=== PATIENT | female | born 1950 | race Caucasian/White ===

== ENCOUNTER → 2020-01-11 18:41 | Outpatient (ROUT) | payer MEDICARE, SELFPAY ==
[2020-01-11 18:55] LABS: Add Manual Diff / Slide Review NO; Basophils Absolute Auto 0 /uL (0-100); Basophils Percent Auto 0.5 % (0-2); Eosinophils Absolute Auto 200 /uL (0-450); Eosinophils Percent Auto 2.3 % (2-4); Hematocrit 42.9 % (36-46); Hemoglobin 14.8 g/dL (12.0-16.0); Lymphocytes Absolute Auto 800 /uL (1100-4500); Lymphocytes Percent Auto 12.4 % (25-40); Mean Corpuscular HGB Conc 34.6 % (30-36); Mean Corpuscular Hemoglobin 31.2 PG (26-34); Mean Corpuscular Volume 90.2 fL (80-100); Monocytes Absolute Auto 400 /uL (0-900); Monocytes Percent Auto 6.6 % (3-14); Neutrophils Absolute Auto 5200 /uL (1500-7000); Neutrophils Percent Auto 78.2 % (50-75); Platelet Count 206 X10^3/uL (150-400); Red Blood Cell Count 4.76 X10^6/uL (4.0-5.2); Red Cell Distribution Width 12.5 % (11.6-14.8); White Blood Cell Count 6.7 X10^3/uL (4.5-11.0)
[2020-01-11 19:09] LABS: Alanine Aminotransferase 18 IU/L (<35); Albumin Globulin Ratio 1.7 (1.0-2.8); Alkaline Phosphatase 74 U/L (38-126); Aspartate Aminotransferase 31 IU/L (14-36); Bilirubin Total 1.2 mg/dL (0.2-1.3); Blood Urea Nitrogen 15 mg/dL (7-17); Calcium 10.7 mg/dL (8.4-10.2); Carbon Dioxide 28 mmol/L (22-32); Chloride 97 mmol/L (98-107); Cholesterol 245 mg/dL (140-199); Estimated Glomerular Filt Rate > 60.0 mL/min (>60); Glucose 91 mg/dL (80-110); HEMOLYSIS < 15 (0-50); Potassium 4.1 mmol/L (3.4-5.1); Sodium 135 mmol/L (137-145); Triglycerides 50 mg/dL (35-150)
[2020-01-11 19:15] LABS: C-Reactive Protein Quant < 0.5 mg/dL (<1.0); HDL Cholesterol 136 mg/dL (40-60); LDL Cholesterol Calculated 99 mg/dL (<100)
[2020-01-11 19:22] LABS: Erythrocyte Sedimentation Rate 4 MM/HR (0-20)
[2020-01-11 19:37] LABS: TSH w/ Reflex to FT4 0.65 uIU/mL (0.47-4.68)
== END ==
PROVIDERS: Visit Provider Internal Medicine
DX: M45.9 Ankylosing spondylitis of unspecified sites in spine (principal); E78.2 Mixed hyperlipidemia
CPT/HCPCS: 80053; 80061; 84443; 85025; 85651; 86140

== ENCOUNTER → 2020-12-19 18:55 | Outpatient (ROUT) | payer OTHER, SELFPAY ==
[2020-12-19 19:33] LABS: HEMOLYSIS < 15 (0-50); Potassium 4.1 mmol/L (3.4-5.1)
[2020-12-19 19:34] LABS: Aspartate Aminotransferase 30 IU/L (14-36); BUN Creatinine Ratio 25.9 (6-22); Blood Urea Nitrogen 15 mg/dL (7-17); Calcium 10.5 mg/dL (8.4-10.2); Carbon Dioxide 29 mmol/L (22-32); Chloride 97 mmol/L (98-107); Cholesterol 250 mg/dL (140-199); Estimated Glomerular Filt Rate > 60.0 mL/min (>60); Glucose 112 mg/dL (80-110); Sodium 135 mmol/L (137-145); Triglycerides 73 mg/dL (35-150)
[2020-12-19 19:51] LABS: HDL Cholesterol 142 mg/dL (40-60); LDL Cholesterol Calculated 93 mg/dL (<100)
[2020-12-19 20:21] LABS: Vitamin B12 841 pg/mL (239-931)
== END ==
PROVIDERS: Visit Provider Internal Medicine
DX: I10 Essential (primary) hypertension (principal); E78.2 Mixed hyperlipidemia; E53.8 Deficiency of other specified B group vitamins
CPT/HCPCS: 80048; 80061; 82607; 84450

== ENCOUNTER → 2024-04-09 08:54 | Outpatient (CLI) | payer MEDICARE, SELFPAY ==
[2024-04-09 10:01] LABS: Add Manual Diff / Slide Review NO; Basophils Absolute Auto 0 /uL (0-100); Basophils Percent Auto 0.5 % (0-2); Eosinophils Absolute Auto 100 /uL (0-450); Eosinophils Percent Auto 2.2 % (2-4); Hematocrit 41.9 % (36-46); Hemoglobin 14.1 g/dL (12.0-16.0); Lymphocytes Absolute Auto 900 /uL (1100-4500); Lymphocytes Percent Auto 19.1 % (25-40); Mean Corpuscular HGB Conc 33.8 % (30-36); Mean Corpuscular Hemoglobin 30.5 PG (26-34); Mean Corpuscular Volume 90.2 fL (80-100); Monocytes Absolute Auto 400 /uL (0-900); Monocytes Percent Auto 8.5 % (3-14); Neutrophils Absolute Auto 3300 /uL (1500-7000); Neutrophils Percent Auto 69.7 % (50-75); Platelet Count 239 X10^3/uL (150-400); Red Blood Cell Count 4.64 X10^6/uL (4.0-5.2); Red Cell Distribution Width 12.4 % (11.6-14.8); White Blood Cell Count 4.7 X10^3/uL (4.5-11.0)
[2024-04-09 10:29] LABS: Alanine Aminotransferase 19 IU/L (<35); Albumin 4.5 g/dL (3.5-5.0); Albumin Globulin Ratio 1.7 (1.0-2.8); Alkaline Phosphatase 72 U/L (38-126); Aspartate Aminotransferase 29 IU/L (14-36); BUN Creatinine Ratio 18.6 (6-22); Bilirubin Total 0.8 mg/dL (0.2-1.3); Blood Urea Nitrogen 11 mg/dL (7-17); Calcium 9.9 mg/dL (8.4-10.2); Carbon Dioxide 27 mmol/L (22-32); Chloride 98 mmol/L (98-107); Cholesterol 243 mg/dL (140-199); Estimated Glomerular Filt Rate > 60 mL/min (>60); Globulin 2.6 g/dL (1.7-4.1); Glucose 86 mg/dL (80-110); HEMOLYSIS < 15 (0-50); Potassium 4.6 mmol/L (3.4-5.1); Sodium 134 mmol/L (137-145); Total Protein 7.1 g/dL (6.3-8.2); Triglycerides 50 mg/dL (35-150)
[2024-04-09 10:40] LABS: HDL Cholesterol 160 mg/dL (40-60); LDL Cholesterol Calculated 73 mg/dL (<100)
[2024-04-09 13:02] LABS: Creatinine Urine Random 41.11 mg/dL
[2024-04-09 13:12] LABS: Microalbumin Urine Random < 0.6 mg/dL (0-1.6)
== END ==
PROVIDERS: PCP Family Medicine; Referring Provider Family Medicine; Visit Provider Family Medicine
DX: I10 Essential (primary) hypertension (principal); E78.5 Hyperlipidemia, unspecified; Z13.9 Encounter for screening, unspecified
CPT/HCPCS: 36415; 80053; 80061; 82043; 82570; 85025

== ENCOUNTER → 2024-04-12 09:28 | Outpatient (CLI) | payer MEDICARE, SELFPAY ==
--- NOTE | 2024-04-12 09:31 | DI.RAD.S_ITS ---
PROCEDURE: XR DEXA AXIAL SKELETON INDICATIONS: Bone Density Screening COMPARISON: None. FINDINGS: Lumbar Spine: Bone mineral density 0.928 g/cm2, T score -1.1, normal. Right Hip: Bone mineral density 0.652 g/cm2, T score -2.4, osteopenia. Right Femoral Neck: Bone mineral density 0.637 g/cm2, T score -1.9, osteopenia. Left Forearm: Bone mineral density 0.602 g/cm2, T score -1.5, osteopenia. Fracture Risk Calculation (when applicable): 10-year fracture risk of a major osteoporotic fracture 12 % and of a hip fracture 3%. (T score greater or equal to -1.0 to: NORMAL) (T score from -1.1 to -2.4: OSTEOPENIA) (T score less than or equal to -2.5: OSTEOPOROSIS) IMPRESSION: Osteopenia. Follow-up guidelines as follows: Osteoporosis: Consider a repeat DEXA and Vertebral Fracture Assessment (VFA) exam in 2 years or sooner if medically necessary, to reassess this patient's status. Osteopenia: Consider a repeat DEXA in 2-3 years to reassess this patient's status, or if there is a new clinical indication. Normal: Consider a repeat DEXA in 5 years or sooner, or if there is a new clinical indication. All treatment decisions require clinical judgment and consideration of individual patient factors, including patient preferences, comorbidities, previous drug use, risk factors not captured in the FRAX model (e.g., frailty, falls, vitamin D deficiency, increased bone turnover, interval significant decline in bone density ) and possible under- or over-estimation of fracture risk by FRAX. In addition, the NOF Guide recommends that FDA-approved medical therapies be considered in postmenopausal women and men age >= 50 years with a: * Hip or vertebral (clinical or morphometric) fracture * T-score of <=-2.5 at the spine or hip * Ten-year fracture probability by FRAX of >= 3% for hip fracture or >=20% for major osteoporotic fracture. People with diagnosed cases of osteoporosis or at high risk for fracture should have regular bone mineral density tests. For patients eligible for Medicare, routine testing is allowed once every 2 years. The testing frequency can be increased to one year for patients who have rapidly progressing disease, those who are receiving or discontinuing medical therapy to restore bone mass, or have additional risk factors. Dictated by: Ashish Woodson M.D. on 04/12/2024 at 15:12 Approved by: Ashish Woodson M.D. on 04/12/2024 at 15:13
== END ==
PROVIDERS: PCP Family Medicine; Referring Provider Family Medicine; Visit Provider Family Medicine
DX: M85.89 Other specified disorders of bone density and structure, multiple sites (principal); Z13.820 Encounter for screening for osteoporosis; Z78.0 Asymptomatic menopausal state
CPT/HCPCS: 77080; 77081

== ENCOUNTER → 2024-04-20 06:30 | Outpatient (CLI) | payer MEDICARE, SELFPAY ==
--- NOTE | 2024-04-20 06:31 | DI.US.S_ITS ---
PROCEDURE: US CAROTID DOPPLER BI INDICATIONS: HISTORY OF PLAQUE APPROXIMATELY 2012 TECHNIQUE: Color and pulse Doppler interrogation was performed of both carotid systems, with image documentation and velocity measurements. COMPARISON: None. FINDINGS: Stenosis calculations are based on SRU (Society of Radiologists in Ultrasound) criteria. Right side: Common carotid artery peak systolic velocity: 102 cm/sec. Internal carotid artery peak systolic velocity: 88 cm/sec. Internal carotid artery end diastolic velocity: 20 cm/sec. External carotid artery peak systolic velocity: 150 cm/sec. ICA/CCA peak systolic ratio: 0.9 . Concepcion scale imaging description: Atherosclerotic plaque Percent internal carotid artery stenosis: Less than 50 . Vertebral artery: Not well seen Left side: Common carotid artery peak systolic velocity: 165 cm/sec. Internal carotid artery peak systolic velocity: 72 cm/sec. Internal carotid artery end diastolic velocity: 13 cm/sec. External carotid artery peak systolic velocity: 135 cm/sec. ICA/CCA peak systolic ratio: 0.4 . Concepcion scale imaging description: Shadowing atherosclerotic plaque Percent internal carotid artery stenosis: Less than 50 . Vertebral artery: Flow direction is antegrade. IMPRESSION: Atherosclerotic plaque with less than 50 percent stenosis bilateral proximal ICA. Right vertebral artery not well seen. Approved by: Steve Butler M.D. on 04/20/2024 at 15:13
== END ==
PROVIDERS: PCP Family Medicine; Referring Provider Family Medicine; Visit Provider Family Medicine
DX: I77.9 Disorder of arteries and arterioles, unspecified (principal); I10 Essential (primary) hypertension; E78.5 Hyperlipidemia, unspecified; I65.23 Occlusion and stenosis of bilateral carotid arteries
CPT/HCPCS: 93880

== ENCOUNTER → 2024-07-01 08:10 | Outpatient (CLI) | payer MEDICARE, SELFPAY ==
--- NOTE | 2024-07-01 | DI.ECHO.S_ITS ---
[facility] : : [address] : : [place] : : [id number] : : Phone: [phone] Echocardiogram Report + + :Name: CELIA MAC Study Date: 07/01/2024 Height: 64 in : :[facility] ReadingLocation: Weight: 126 lb : : Gender: Female BSA: 1.6 m2 : :: 1950 Age: 74 yrs BP: 193/98 mmHg: :Reason For Study: MURMUR FOLLOW UP : :Ordering Physician: MARLYN, : :LOBO Rubio Performed By: Lobo Barrera : :Referring: LOBO CLINE : + + Interpretation Summary The left ventricle is normal in size. The left ventricle is hyperdynamic. The ejection fraction is estimated to be 70-75%. There is no echo evidence for significant left ventricular outflow tract obstruction. The right ventricle is normal in size and function. There is mild mitral regurgitation. Mild TR. The right ventricular systolic pressure is estimated to be at least 38 mmHg based on an estimated right atrial pressure of 3 mm Hg. Moderate atherosclerotic plaque(s) in the aortic arch. Aortic valve mild to moderately calcified.There is mildly reduced leaflet mobility. In parasternal long axis view, there is a small thin filamentous like structure seen attached to the aortic cusp towards LV outflow tract side which moves with the aortic cusp. Does not appears to be typical vegetation or thrombus. 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 Correlate clinically. If there is a clinical evidence of TIA or stroke or endocarditis, consider DEISY. Procedure: A two-dimensional transthoracic echocardiogram with color flow and Doppler was performed. The study quality was technically good. There is no prior echocardiogram noted for this patient. The patient was in normal sinus rhythm during the exam. Rhythm sinus to mild sinus tachycardia. Left Ventricle: The left ventricle is normal in size. There is normal left ventricular wall thickness. There is no echo evidence for significant left ventricular outflow tract obstruction. There is no thrombus. The ejection fraction is estimated to be 70-75%. The left ventricle is hyperdynamic. There are no focal wall motion abnormalities. Diastolic parameters suggest a relaxation abnormality of the left ventricle, consistent with probable normal filling pressures. Right Ventricle: The right ventricle is normal in size and function. Atria: The left atrium is severely dilated. Right atrial size is normal. There is no Doppler evidence for an atrial septal defect. Mitral Valve: The mitral valve leaflets appear mildly thickened, but open well. There is mild mitral annular calcification. There is mild mitral regurgitation. Aortic Valve: The aortic valve is trileaflet. There is mildly reduced leaflet mobility. Aortic valve mild to moderately calcified. In parasternal long axis view, there is a small thin filamentous like structure seen attached to the aortic cusp towards LV outflow tract side which moves with the aortic cusp. Does not appears to be typical vegetation or thrombus. 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 Correlate clinically. There is no hemodynamically significant valvular aortic stenosis. Tricuspid Valve: The tricuspid valve is normal. There is mild tricuspid regurgitation. The right ventricular systolic pressure is estimated to be at least 38 mmHg based on an estimated right atrial pressure of 3 mm Hg. Pulmonic Valve: The pulmonic valve leaflets are thin and pliable; valve motion is normal. There is trace pulmonic regurgitation. Great Vessels: The aortic root is normal size. The ascending aorta is at the upper limits of normal in size. Moderate atherosclerotic plaque(s) in the aortic arch. The pulmonary artery is normal size. The IVC is of normal diameter and collapses greater than 50% with a sniff. This suggests a low right atrial pressure of 3 mm Hg. Pericardium/ Pleura There is no pericardial effusion. There is no pleural effusion. MMode/2D Measurements & Calculations LVIDd: 4.1 cm LVOT diam: 2.1 cm LVIDs: 2.3 cm Ao root diam: 3.5 cm FS: 44.1 % asc Aorta Diam: 3.7 cm EPSS: 0.45 cm IVSd: 1.0 cm LVPWd: 1.00 cm LV john. diameter/BSA (cm/m^2): 2.6 LV sys. diameter/BSA (cm/m^2): 1.4 LA A2 area: 25.0 cm2 RA long axis: 4.2 cm LA A4 area: 23.6 cm2 RA area: 11.6 cm2 LA length (vol): 5.5 cm RA vol: 27.4 ml LA vol: 91.7 ml RA : 17.0 ml/m2 LA vol index: 57.1 ml/m2 IVC diam: 1.2 cm RVD1 (basal): 3.3 cm RVD2 (mid): 2.2 cm TAPSE: 3.2 cm Doppler Measurements & Calculations Ao V2 max: 163.0 cm/sec LVOT Max Mirza: 131.2 cm/sec Ao V2 mean: 105.3 cm/sec LV V1 max P.9 mmHg Ao max P.6 mmHg LV V1 VTI: 32.8 cm Ao mean P.1 mmHg ALEXUS(I,D): 3.0 cm2 Ao V2 VTI: 36.5 cm ALEXUS(V,D): 2.7 cm2 sev ratio: 0.90 ALEXUS indexed to BSA (cm^2/m^2): 1.9 MV E max mirza: 71.1 cm/sec TR max mirza: 297.0 cm/sec MV A max mirza: 97.3 cm/sec TR max P.3 mmHg MV E/A: 0.73 PA V2 max: 107.7 cm/sec Med Peak E' Mirza: 6.0 cm/sec PA V2 mean: 80.4 cm/sec E/E' med: 11.9 PA mean P.8 mmHg Lat Peak E' Mirza: 5.9 cm/sec PA pr(Accel): 20.8 mmHg E/E' lat: 12.1 E/e' average: 12.0 MV dec time: 0.27 sec SV(LVOT): 108.5 ml Reading Physician:01:24 PM
== END ==
PROVIDERS: PCP Family Medicine; Referring Provider Family Medicine; Visit Provider Family Medicine
DX: I08.1 Rheumatic disorders of both mitral and tricuspid valves (principal); I70.0 Atherosclerosis of aorta; I77.9 Disorder of arteries and arterioles, unspecified; R01.1 Cardiac murmur, unspecified; I10 Essential (primary) hypertension; E78.5 Hyperlipidemia, unspecified
CPT/HCPCS: 93306

== ENCOUNTER → 2025-02-24 07:47 | Outpatient (CLI) | payer MEDICARE, SELFPAY ==
[2025-02-24 08:24] LABS: Hematocrit 40.2 % (36-46); Hemoglobin 13.6 g/dL (12.0-16.0); Mean Corpuscular HGB Conc 33.9 % (30-36); Mean Corpuscular Hemoglobin 30.2 PG (26-34); Mean Corpuscular Volume 89.3 fL (80-100); Platelet Count 217 X10^3/uL (150-400)
[2025-02-24 08:55] LABS: Alanine Aminotransferase 17 IU/L (<35); Albumin 4.4 g/dL (3.5-5.0); Albumin Globulin Ratio 1.6 (1.0-2.8); Alkaline Phosphatase 64 U/L (38-126); Blood Urea Nitrogen 12 mg/dL (7-17); Calcium 9.8 mg/dL (8.4-10.2); Carbon Dioxide 29 mmol/L (22-32); Chloride 98 mmol/L (98-107); Cholesterol 222 mg/dL (140-199); Estimated Glomerular Filt Rate > 60 mL/min (>60); Globulin 2.7 g/dL (1.7-4.1); Glucose 86 mg/dL (70-99); HEMOLYSIS < 15 (0-50); Potassium 4.0 mmol/L (3.4-5.1); Sodium 133 mmol/L (137-145); Total Protein 7.1 g/dL (6.3-8.2); Triglycerides 56 mg/dL (35-150)
[2025-02-24 09:23] LABS: HDL Cholesterol 127 mg/dL (40-60)
[2025-02-24 09:24] LABS: TSH w/ Reflex to FT4 1.70 uIU/mL (0.47-4.68)
== END ==
PROVIDERS: PCP Family Medicine; Referring Provider Family Medicine; Visit Provider Family Medicine
DX: E78.5 Hyperlipidemia, unspecified (principal); I10 Essential (primary) hypertension; I77.9 Disorder of arteries and arterioles, unspecified; Z79.899 Other long term (current) drug therapy
CPT/HCPCS: 36415; 80053; 80061; 84443; 85027